=== PATIENT | female | born 1990 | race Caucasian/White ===

== ENCOUNTER → 2021-04-18 | Outpatient (CLI) | payer OTHER | LOC: M LAB 07:12 | PROVIDERS: ATTEND Specialist | DX: Z36.89 Encounter for other specified antenatal screening (principal) ==

== ENCOUNTER → 2021-05-06 | Outpatient (REF) | payer OTHER ==
[~2021-05-06] MED LIST: DOK1CAP4 PO; IBUP80TA PO; PRENTAB9 PO
== END ==
LOC: M SFHCWAGY 16:52
PROVIDERS: ATTEND Specialist
DX: Z34.03 Encounter for supervision of normal first pregnancy, third trimester (principal)
CPT/HCPCS: 87081; 87186; G0463

== ENCOUNTER 2021-05-24 18:05 | Outpatient (CLI) | payer OTHER ==
[~2021-05-24] VITALS: Ht 162.6 cm; Wt 83.1 kg
[2021-05-24 19:08] VITALS: BP 114/76
--- NOTE | 2021-05-24 21:53 | IPNPDOC ---
Text Note Date of Service The patient was seen on 05/24/21. NOTE Outpatient 30yo MICKEY 06/01/2021. Presents @ 38w6d with complaints of UC through the day. Denies LOF, bleeding. Reports good movement Breathing with UC UC 2-5 minutes x 60 seconds, moderate FH 135, Cat I SVE 2/80/-2, minimal change from office visit 05/20 2/50/-3 Observed over 2 hours, no cervical change. UC continue. Cat I tracing. Reviewed options, inability to induce at this time due to <39wks - home, therapeutic rest, continued observation for cervical change. Pt and family desire discharge tonight. Reviewed LO, daily FKC, warnings to call. Keep appt next week if no further change. VS,Fishbone, I+O VS, Fishbone, I+O Vital Signs Date Time Temp Pulse Resp B/P (MAP) Pulse Ox O2 Delivery O2 Flow Rate FiO2 05/24/21 19:08 92 114/76 (89) Missy Hargrove CNM May 24, 2021 21:53
[2021-05-25] MEDS ORDERED: PRENTAB9 PO (06:19)
[2021-05-27] MEDS ORDERED: DOK1CAP7 PO (08:06)
== END 2021-05-24 21:58 | disposition home or self-care (01) ==
LOC: M LDO 18:05
PROVIDERS: ATTEND Advanced Practice Midwife
DX: O47.1 False labor at or after 37 completed weeks of gestation (principal); Z3A.38 38 weeks gestation of pregnancy; Z79.899 Other long term (current) drug therapy
CPT/HCPCS: 59025; G0378; G0463

== ENCOUNTER 2021-05-25 05:49 | Inpatient (IN) | payer OTHER ==
[2021-05-25] VITALS (17 sets, daily range): BP systolic 114–152; BP diastolic 55–90
[~2021-05-25] VITALS: Ht 162.6 cm; Wt 83.0 kg
[2021-05-25] MEDS ORDERED: PRENTAB9 PO (06:19)
[2021-05-25] MEDS ORDERED: HOME MED LIST COMPLETE! XX SCH (06:20)
[2021-05-25] MEDS ORDERED: PENICILLIN G POTASSIUM IV 5 MU in D5W MINI-BAG PLUS 100 ML IV STA ×2 (06:36→07:09)
[2021-05-25] MEDS ORDERED: LACTATED RINGER'S 1000 ML IV STA (06:36)
[2021-05-25] MEDS ORDERED: LR 1,000 ML IV SCH (06:40)
[2021-05-25] MEDS ORDERED: OXYTOCIN DRIP 30 UNITS in IV 1 EA IV PRN (06:40)
[2021-05-25] MEDS ORDERED: METHYLERGONOVINE MALEATE 0.2 MG/ML VIAL (J2210) IM PRN (06:40)
[2021-05-25] MEDS ORDERED: LIDOCAINE 1% MDV 20ML VIAL INFIL PRN (06:40)
[2021-05-25 06:57] LABS: HEMATOCRIT 33.8 % (36.0-47.0); HEMOGLOBIN 11.2 g/dl (12.0-15.5); MEAN CORPUSCULAR HEMOGLOBIN 26.8 pg (27.0-33.0); MEAN CORPUSCULAR HGB CONC 33.1 g/dl (32.0-36.5); MEAN CORPUSCULAR VOLUME 80.9 fl (80.0-96.0); PLATELET COUNT, AUTOMATED 412 10^3/uL (150-450); RED BLOOD COUNT 4.18 10^6/uL (4.00-5.40); WHITE BLOOD COUNT 27.8 10^3/uL (4.0-10.0)
[2021-05-25] MEDS ORDERED: FENTANYL 2MCG/ML ROPIVACAINE 0.2% IN 0.9% NACL 100ML IVBAG As Ordered ONE (07:21)
[2021-05-25] MEDS ORDERED: **PENDING PCN ENTRY XX SCH (09:00)
[2021-05-25] MEDS ORDERED: OXYTOCIN DRIP 30 UNITS in IV 1 EA IV SCH (09:10)
[2021-05-25] MEDS ORDERED: DOCUSATE SODIUM 100MG CAPSULE PO PRN (09:10)
[2021-05-25] MEDS ORDERED: IBUPROFEN 600MG TAB PO PRN (09:10)
[2021-05-25] MEDS ORDERED: RHOGAM 300 MCG (1500 IU) INJ (J2790) IM SCH (09:10)
[2021-05-25] MEDS ORDERED: ACETAMINOPHEN 500 MG TAB PO PRN (09:10)
[2021-05-25] MEDS ORDERED: ACETAMINOPHEN TAB 650MG DOSE (2X325MG) PO PRN (09:10)
[2021-05-25] MEDS ORDERED: MEASLES,MUMPS,RUBELLA VACCINE INJ (MMR-II) (90707) SC SCH (09:10)
[2021-05-25] MEDS ORDERED: diphenhydrAMINE 50MG/ML VIAL (J1200) IV PRN (09:35)
[2021-05-25] MEDS ORDERED: ePHEDrine SULFATE 25 MG/5 ML(5MG/ML) SYRINGE IV PRN (09:35)
[2021-05-25] MEDS ORDERED: EPIDURAL/PCA KEYS XX PRN (09:35)
[2021-05-25] MEDS ORDERED: REFRIGERATOR IV KEYS XX PRN (09:35)
[2021-05-25] MEDS ORDERED: FENTANYL/ROPIVACAINE/NACL BAG 100 ML EPIDURAL SCH (09:35)
[2021-05-25] MEDS ORDERED: LACTATED RINGER'S 1000 ML IV PRN (09:35)
[2021-05-25] MEDS ORDERED: NALOXONE INJ 0.4MG/1ML VIAL (J2310 PER 1MG) IV PRN (09:35)
[2021-05-25] MEDS ORDERED: EPIDURAL COMMENT XX SCH (09:35)
[2021-05-25] MEDS ORDERED: ONDANSETRON 4MG/2ML VIAL IV PRN (09:35)
[2021-05-25] MEDS ORDERED: PENICILLIN G POTASSIUM IV 2.5 MU in IV 1 EA IV SCH ×2 (10:40→11:00)
[2021-05-25] MEDS: IBUPROFEN 800 MG TAB PO PRN ×2 (13:30→22:14)
[2021-05-26 06:00] VITALS: BP 105/67
[2021-05-26] MEDS: PRENATAL VITAMINS CHEWABLE TABLET PO SCH (10:32)
[2021-05-26 18:00] VITALS: BP 137/77
[2021-05-27 06:00] VITALS: BP 108/69
[2021-05-27] MEDS: PRENATAL VITAMINS CHEWABLE TABLET PO SCH (07:24)
[2021-05-27] MEDS ORDERED: DOK1CAP4 PO (08:06)
[2021-05-27] MEDS ORDERED: IBUP80TA PO (08:06)
== END 2021-05-27 10:13 | disposition home or self-care (01) | DRG 807 ==
LOC: M LDO 05:49 → M LDI 06:52 → M OBS 11:26
PROVIDERS: ADMIT Advanced Practice Midwife; ATTEND Advanced Practice Midwife
PROC: 10E0XZZ Delivery of Products of Conception, External Approach (ICD-10-PCS; principal; 2021-05-25)
PROC: 0KQM0ZZ Repair Perineum Muscle, Open Approach (ICD-10-PCS; 2021-05-25)
DX: O62.3 Precipitate labor (principal); Z37.0 Single live birth; Z3A.39 39 weeks gestation of pregnancy; O70.1 Second degree perineal laceration during delivery; O99.824 Streptococcus B carrier state complicating childbirth

== ENCOUNTER → 2021-08-30 | Outpatient (REF) | LOC: M LABSMTC 09:49 | PROVIDERS: ATTEND Family Medicine | DX: Z11.52 Encounter for screening for COVID-19 (principal); Z20.822 Contact with and (suspected) exposure to COVID-19 ==

== ENCOUNTER → 2022-04-22 | Outpatient (REF) ==
[2022-04-22 13:49] LABS: RSV AMPLIFICATION NEGATIVE (NEGATIVE)
== END ==
LOC: M EMP 08:38
PROVIDERS: ATTEND Family Medicine
DX: Z20.822 Contact with and (suspected) exposure to COVID-19 (principal)

== ENCOUNTER → 2022-04-24 | Outpatient (REF) | LOC: M EMP 12:06 | PROVIDERS: ATTEND Family Medicine | DX: Z20.822 Contact with and (suspected) exposure to COVID-19 (principal) ==

== ENCOUNTER → 2022-08-26 | Outpatient (REF) | payer BC | LOC: M SFHCPLAZ 10:27 | PROVIDERS: ATTEND Family Medicine | DX: K21.9 Gastro-esophageal reflux disease without esophagitis (principal) ==

== ENCOUNTER → 2022-09-25 | Outpatient (REF) | payer BC | LOC: M SFHCPLAZ 09:35 | PROVIDERS: ATTEND Family Medicine | DX: K21.9 Gastro-esophageal reflux disease without esophagitis (principal) ==

== ENCOUNTER → 2023-01-01 | Outpatient (REF) | payer BC | LOC: M SFHCWAGY 15:13 | PROVIDERS: ATTEND Nurse Practitioner Family | DX: Z12.4 Encounter for screening for malignant neoplasm of cervix (principal) | CPT/HCPCS: 87624; G0123 ==

== ENCOUNTER → 2023-09-09 | Outpatient (CLI) | payer BC ==
[~2023-09-09] MED LIST changes: +E-Z-GAS II EFFERVESCENT PACKET (SODIUM BICARB./CITRIC ACID/SIMETHICONE) As Ordered ONE; +E-Z-HD 98% w/w 340GM SUSP BTL As Ordered ONE; +E-Z-PAQUE 96% w/w SUSP 176GM BTL As Ordered ONE
== END ==
LOC: M RAD 08:49
PROVIDERS: ATTEND Family Medicine
DX: R10.13 Epigastric pain (principal); R09.A2 Foreign body sensation, throat

== ENCOUNTER → 2023-11-02 | Outpatient (REF) ==
[~2023-11-02] MED LIST changes: -E-Z-GAS II EFFERVESCENT PACKET (SODIUM BICARB./CITRIC ACID/SIMETHICONE) As Ordered ONE; -E-Z-HD 98% w/w 340GM SUSP BTL As Ordered ONE; -E-Z-PAQUE 96% w/w SUSP 176GM BTL As Ordered ONE
== END ==
LOC: M EMP 09:24
PROVIDERS: ATTEND Family Medicine
DX: Z11.52 Encounter for screening for COVID-19 (principal)

== ENCOUNTER → 2023-12-25 | Outpatient (CLI) | payer BC | LOC: M RAD 07:00 | PROVIDERS: ATTEND Physician Assistant Medical | DX: R10.13 Epigastric pain (principal); R14.2 Eructation; K21.9 Gastro-esophageal reflux disease without esophagitis | CPT/HCPCS: 78264; A9541 ==

== ENCOUNTER → 2024-01-04 | Outpatient (REF) | payer BC | LOC: M SFHCWAGY 08:09 | PROVIDERS: ATTEND Nurse Practitioner Family | DX: Z12.4 Encounter for screening for malignant neoplasm of cervix (principal) | CPT/HCPCS: 87624; G0123 ==

== ENCOUNTER 2024-02-25 11:32 | Day surgery (SDC) | payer BC ==
[~2024-02-25] VITALS: Ht 162.6 cm; Wt 76.6 kg
[~2024-02-25 11:32] MED LIST changes: +FAMO20TA5 PO; +LIDOCAINE 2% 100MG/5ML SDV (FOR ANES.) As Ordered ONE; +PANT40TA29 PO; +SIME125T PO; +SUCR1TAB56; +TUMS500C PO; +fentaNYL 100 MCG/2 ML INJECTION As Ordered ONE; +propofoL 200 MG/20 ML VIAL As Ordered ONE
[2024-02-25] MEDS: NS 1,000 ML IV ONE (11:49)
[2024-02-25 13:36] VITALS: TEMP 98.2
[2024-02-25 13:53] VITALS: BP 122/70; O2SAT 99
== END 2024-02-25 14:13 | disposition home or self-care (01) ==
LOC: M OPP 11:32
PROVIDERS: ATTEND Internal Medicine Gastroenterology
DX: R10.13 Epigastric pain (principal); R12 Heartburn; Z79.899 Other long term (current) drug therapy
CPT/HCPCS: 43239; 88305; J3010

== ENCOUNTER → 2024-04-06 | Outpatient (CLI) | payer BC ==
[~2024-04-06] MED LIST changes: -LIDOCAINE 2% 100MG/5ML SDV (FOR ANES.) As Ordered ONE; -fentaNYL 100 MCG/2 ML INJECTION As Ordered ONE; -propofoL 200 MG/20 ML VIAL As Ordered ONE
[2024-04-06 19:07] LABS: FREE T4 1.27 NG/DL (0.89-1.76); THYROID STIMULATING HORMONE 0.821 uIU/ML (0.55-4.78)
[2024-04-06 21:13] LABS: HEMOGLOBIN A1c 5.1 % (4.0-6.0)
== END ==
LOC: M LRY 11:28
PROVIDERS: ATTEND Physician Assistant Medical
DX: K31.84 Gastroparesis (principal)

== ENCOUNTER → 2025-07-21 | Outpatient (REF) | payer OTHER | LOC: M SFHCPLAZ 09:11 | PROVIDERS: ATTEND Family Medicine | DX: Z53.9 Procedure and treatment not carried out, unspecified reason (principal) ==

== ENCOUNTER → 2025-07-27 | Outpatient (CLI) | payer OTHER ==
[2025-07-28 15:31] LABS: UNITSIGA FOR GLIADIN IGA < 1.0 U/mL (<15.0); UNITSIGG FOR GLIADIN IGG < 1.0 U/mL (<15.0)
== END ==
LOC: M LAB 08:16
PROVIDERS: ATTEND Family Medicine
DX: R14.2 Eructation (principal)

== ENCOUNTER → 2025-09-26 | Outpatient (REF) | payer OTHER | LOC: M SFHCDERM 16:11 | PROVIDERS: ATTEND Physician Assistant | DX: D48.9 Neoplasm of uncertain behavior, unspecified (principal) ==